=== PATIENT | female | born 1960 | race Caucasian/White ===

== ENCOUNTER 2022-07-16 12:18 | Inpatient (IN) | payer OTHER ==
[~2022-07-16] VITALS: Ht 167.6 cm; Wt 49.9 kg
[2022-08-02] MEDS ORDERED: FLUCONAZOLE100 MG PO (12:52)
[2022-08-02] MEDS ORDERED: TRAM1TAB98 PO (12:52)
[2022-08-02] MEDS ORDERED: PEPCID AC20 MG PO (12:53)
== END 2022-08-02 17:48 | disposition home or self-care (01) | DRG 329 ==
LOC: ER 12:18 → SURH 22:22 → SURG 22:22 → SURH 23:02
PROVIDERS: ADMIT Surgery; ATTEND Surgery
PROC: BW21YZZ Computerized Tomography (CT Scan) of Abdomen and Pelvis using Other Contrast (ICD-10-PCS; 2022-07-16)
PROC: 0T9030Z Drainage of Right Kidney with Drainage Device, Percutaneous Approach (ICD-10-PCS; 2022-07-18)
PROC: 0D1L4Z4 Bypass Transverse Colon to Cutaneous, Percutaneous Endoscopic Approach (ICD-10-PCS; principal; 2022-07-25 14:45)
PROC: 30233N1 Transfusion of Nonautologous Red Blood Cells into Peripheral Vein, Percutaneous Approach (ICD-10-PCS; 2022-08-01)
DX: C20 Malignant neoplasm of rectum (principal); A41.9 Sepsis, unspecified organism; C77.5 Secondary and unspecified malignant neoplasm of intrapelvic lymph nodes; K56.690 Other partial intestinal obstruction; N32.1 Vesicointestinal fistula; N39.0 Urinary tract infection, site not specified; N13.39 Other hydronephrosis; B96.5 Pseudomonas (aeruginosa) (mallei) (pseudomallei) as the cause of diseases classified elsewhere; D63.0 Anemia in neoplastic disease; Z20.822 Contact with and (suspected) exposure to COVID-19; Z93.3 Colostomy status

== ENCOUNTER 2022-08-15 18:58 | Inpatient (IN) | payer OTHER ==
[~2022-08-15] VITALS: Ht 198.1 cm; Wt 49.9 kg
[~2022-08-15 18:58] MED LIST: FLUCONAZOLE100 MG PO; PEPCID AC20 MG PO; TRAM1TAB98 PO
[2022-08-17] MEDS ORDERED: FAMOTIDINE20 MG (14:58)
[2022-08-20] MEDS ORDERED: PROTEINEX-18 LI30 ML PO (12:16)
[2022-08-20] MEDS ORDERED: PEPCID AC20 MG PO (12:16)
[2022-08-20] MEDS ORDERED: LEVOFLOXACIN750 MG PO (12:16)
[2022-08-20] MEDS ORDERED: MELATONIN10 M2 PO (12:16)
== END 2022-08-20 13:58 | disposition home or self-care (01) | DRG 690 ==
LOC: ER 18:58 → MEDJ 23:23
PROVIDERS: ADMIT Internal Medicine Geriatric Medicine; ATTEND Internal Medicine Geriatric Medicine
DX: N39.0 Urinary tract infection, site not specified (principal); C78.5 Secondary malignant neoplasm of large intestine and rectum; C20 Malignant neoplasm of rectum; N32.1 Vesicointestinal fistula; B96.89 Other specified bacterial agents as the cause of diseases classified elsewhere; Z74.01 Bed confinement status; Z93.3 Colostomy status; Z93.6 Other artificial openings of urinary tract status

== ENCOUNTER 2022-09-13 08:00 | Outpatient (CLI) | payer OTHER ==
[~2022-09-13 08:00] MED LIST changes: +FAMOTIDINE20 MG; +LEVOFLOXACIN750 MG PO; +MELATONIN10 M2 PO; +PROTEINEX-18 LI30 ML PO
== END 2022-09-13 08:05 | disposition home or self-care (01) ==
LOC: NUCLEAR 08:00
PROVIDERS: ATTEND Internal Medicine Hematology & Oncology
DX: C19 Malignant neoplasm of rectosigmoid junction (principal); C20 Malignant neoplasm of rectum

== ENCOUNTER 2023-02-18 11:47 | Inpatient (IN) | payer OTHER ==
[~2023-02-18] VITALS: Ht 167.6 cm; Wt 0.5 kg
[2023-02-18 13:57] LABS: HEMATOCRIT 38.1 % (36.0-45.00); HEMOGLOBIN 12.7 g/dL (12.0-15.00); MEAN CELL VOLUME 91.4 fL (80.00-100.00); MEAN CORPUSCULAR HEMOGLOBIN 30.5 pg (27.00-32.0); MEAN CORPUSCULAR HGB CONC 33.4 g/dl (32.0-36.0); PLATELET COUNT 348 K/uL (150-450); RED BLOOD COUNT 4.16 M/uL (4.00-6.00); RED CELL DISTRIBUTION WIDTH 18.8 % (11.5-14.5)
[2023-02-18 14:26] LABS: CALCIUM 8.9 mg/dL (8.5-10.1); CREATININE SERUM 0.86 mg/dL (0.55-1.02); GFR 66.86; POTASSIUM 4.17 mEq/L (3.5-5.1)
[2023-02-18 14:52] LABS: URINE APPEARANCE Turbid; URINE BILIRRUBIN Negative (NEGATIVE); URINE BLOOD Large; URINE COLOR Orange; URINE GLUCOSE Negative (NEGATIVE); URINE LEUKOCYTE Large; URINE NITRATE Negative
[2023-02-18 14:53] LABS: URINE RBC 1696.7 uL (0.0-20.8)
[2023-02-18 15:37] LABS: URINE BACTERIA > 9821.5 uL (0.0-1933); URINE EPITHELIAL CELLS > 201.7 uL (0.0-38.8); URINE PROTEIN 300 (NEGATIVE); URINE WBC > 5548.3 uL (0.0-23.2)
[2023-02-18 22:28] LABS: ABG PH 7.466 (7.35-7.45); ABG PO2 96.9 mmHg (80-100); BASE EXCESS 0.9 mmol/l; allen test SATISFACTORY; o2 21 %; puncture site RADIAL LEFT
[2023-02-19 00:02] LABS: INR 1.27; PROTHROMBIN TIME 13.1 SECONDS (9.0-11.5)
[2023-02-19 00:04] LABS: PARTIAL THROMBOPLASTIN TIME 39.1 SECONDS (22.0-34.0)
[2023-02-20 07:20] LABS: HEMATOCRIT 34.2 % (36.0-45.00); HEMOGLOBIN 11.2 g/dL (12.0-15.00); MEAN CELL VOLUME 90.2 fL (80.00-100.00); MEAN CORPUSCULAR HEMOGLOBIN 29.5 pg (27.00-32.0); MEAN CORPUSCULAR HGB CONC 32.7 g/dl (32.0-36.0); PLATELET COUNT 304 K/uL (150-450); RED BLOOD COUNT 3.79 M/uL (4.00-6.00); RED CELL DISTRIBUTION WIDTH 18.9 % (11.5-14.5)
[2023-02-20 08:11] LABS: ALBUMIN 1.6 gm/dL (3.4-5.0); BILIRUBIN TOTAL 0.33 mg/dL (0.3-1.2); CALCIUM 7.7 mg/dL (8.5-10.1); CREATININE SERUM 0.36 mg/dL (0.55-1.02); GFR 182.64; MAGNESIUM 1.8 mg/dL (1.8-2.4); POTASSIUM 3.77 mEq/L (3.5-5.1); TOTAL PROTEIN 4.6 gm/dL (6.4-8.2)
[2023-02-20 08:55] LABS: PHOSPHOROUS 1.6 mg/dL (2.5-4.9)
[2023-02-20 15:13] LABS: PH,URINE 6.5 (5.0-8.0); URINE APPEARANCE Cloudy; URINE BILIRRUBIN Negative (NEGATIVE); URINE BLOOD Small; URINE COLOR Yellow; URINE GLUCOSE Negative (NEGATIVE); URINE LEUKOCYTE Moderate; URINE NITRATE Positive; URINE PROTEIN 30 (NEGATIVE); URINE UROBILINOGEN 0.2 E.U./dl
[2023-02-20 15:17] LABS: URINE BACTERIA 231.8 uL (0.0-1933); URINE EPITHELIAL CELLS 68.7 uL (0.0-38.8); URINE RBC 32.3 uL (0.0-20.8); URINE WBC 481.4 uL (0.0-23.2)
[2023-02-20 15:29] LABS: URINE MUCUS SCANT
[2023-02-22 06:18] LABS: HEMATOCRIT 33.9 % (36.0-45.00); HEMOGLOBIN 11.3 g/dL (12.0-15.00); MEAN CELL VOLUME 89.1 fL (80.00-100.00); MEAN CORPUSCULAR HEMOGLOBIN 29.7 pg (27.00-32.0); MEAN CORPUSCULAR HGB CONC 33.3 g/dl (32.0-36.0); PLATELET COUNT 185 K/uL (150-450); RED BLOOD COUNT 3.81 M/uL (4.00-6.00); RED CELL DISTRIBUTION WIDTH 18.8 % (11.5-14.5)
[2023-02-22 07:11] LABS: ALBUMIN 1.4 gm/dL (3.4-5.0); BILIRUBIN TOTAL 0.28 mg/dL (0.3-1.2); CALCIUM 7.2 mg/dL (8.5-10.1); CREATININE SERUM 0.3 mg/dL (0.55-1.02); GFR 225.41; MAGNESIUM 1.5 mg/dL (1.8-2.4); POTASSIUM 3.08 mEq/L (3.5-5.1); TOTAL PROTEIN 4.4 gm/dL (6.4-8.2)
[2023-02-22 08:24] LABS: PHOSPHOROUS 1.5 mg/dL (2.5-4.9)
[2023-02-23 07:22] LABS: CALCIUM 7.6 mg/dL (8.5-10.1); PHOSPHOROUS 2.3 mg/dL (2.5-4.9); POTASSIUM 4.27 mEq/L (3.5-5.1)
[2023-02-23 09:04] LABS: CREATININE SERUM 0.28 mg/dL (0.55-1.02); GFR 244.1; MAGNESIUM 1.3 mg/dL (1.8-2.4)
[2023-02-24 08:13] LABS: ALBUMIN 1.3 gm/dL (3.4-5.0); BILIRUBIN TOTAL 0.3 mg/dL (0.3-1.2); CALCIUM 6.8 mg/dL (8.5-10.1); GFR 244.1; GLOBULINA 2.9 G/DL (2.4-3.5); MAGNESIUM 1.6 mg/dL (1.8-2.4); PHOSPHOROUS 2.8 mg/dL (2.5-4.9); POTASSIUM 3.82 mEq/L (3.5-5.1); TOTAL PROTEIN 4.2 gm/dL (6.4-8.2)
[2023-02-24 08:25] LABS: CREATININE SERUM 0.28 mg/dL (0.55-1.02)
[2023-02-24 08:42] LABS: HEMATOCRIT 29.9 % (36.0-45.00); HEMOGLOBIN 10.1 g/dL (12.0-15.00); MEAN CELL VOLUME 90.3 fL (80.00-100.00); MEAN CORPUSCULAR HEMOGLOBIN 30.5 pg (27.00-32.0); MEAN CORPUSCULAR HGB CONC 33.8 g/dl (32.0-36.0); PLATELET COUNT 220 K/uL (150-450); RED BLOOD COUNT 3.32 M/uL (4.00-6.00); RED CELL DISTRIBUTION WIDTH 18.9 % (11.5-14.5)
[2023-02-25 07:25] LABS: ALBUMIN 1.6 gm/dL (3.4-5.0); BILIRUBIN TOTAL 0.41 mg/dL (0.3-1.2); CREATININE SERUM 0.35 mg/dL (0.55-1.02); GFR 188.68; GLOBULINA 2.4 G/DL (2.4-3.5); POTASSIUM 3.64 mEq/L (3.5-5.1)
[2023-02-25 07:30] LABS: HEMATOCRIT 29.3 % (36.0-45.00); HEMOGLOBIN 9.9 g/dL (12.0-15.00); MEAN CORPUSCULAR HEMOGLOBIN 30.6 pg (27.00-32.0); MEAN CORPUSCULAR HGB CONC 33.7 g/dl (32.0-36.0); PLATELET COUNT 188 K/uL (150-450); RED BLOOD COUNT 3.22 M/uL (4.00-6.00); RED CELL DISTRIBUTION WIDTH 18.7 % (11.5-14.5)
[2023-02-25 07:45] LABS: C-REACTIVE PROTEIN 11.3 MG/DL (0.00-0.29)
[2023-02-26 08:36] LABS: HEMATOCRIT 33.8 % (36.0-45.00); MEAN CELL VOLUME 90.4 fL (80.00-100.00); MEAN CORPUSCULAR HEMOGLOBIN 29.5 pg (27.00-32.0); MEAN CORPUSCULAR HGB CONC 32.6 g/dl (32.0-36.0); PLATELET COUNT 268 K/uL (150-450); RED BLOOD COUNT 3.74 M/uL (4.00-6.00); RED CELL DISTRIBUTION WIDTH 19.6 % (11.5-14.5)
[2023-02-26 09:46] LABS: ERYTHROCYTE SEDIMENTATION RATE 73 mm/hr
[2023-02-26 12:04] LABS: PLATELET ESTIMATE NORMAL (NORMAL)
[2023-02-27 08:32] LABS: HEMATOCRIT 29.3 % (36.0-45.00); HEMOGLOBIN 9.8 g/dL (12.0-15.00); MEAN CELL VOLUME 90.6 fL (80.00-100.00); MEAN CORPUSCULAR HEMOGLOBIN 30.4 pg (27.00-32.0); MEAN CORPUSCULAR HGB CONC 33.5 g/dl (32.0-36.0); PLATELET COUNT 204 K/uL (150-450); RED BLOOD COUNT 3.23 M/uL (4.00-6.00)
[2023-02-27 08:41] LABS: ALBUMIN 1.5 gm/dL (3.4-5.0); ALKALINE PHOSPHATASE 423 U/L (50-136); ALT/SGPT 122 U/L (12-78); ANION GAP 9 (10.0-20.0); AST/SGOT 190 U/L (15-37); BILIRUBIN TOTAL 0.58 mg/dL (0.3-1.2); BLOOD UREA NITROGEN 2 mg/dL (7-18); CALCIUM 7.6 mg/dL (8.5-10.1); CARBON DIOXIDE 26 mEq/L (21-32); CHLORIDE 103 mmol/L (98-107); GLOBULINA 2.6 G/DL (2.4-3.5); GLUCOSE FASTING 78 mg/dL (65-100); OSMOLALITY SERUM 265 MOSM/KG (275-295); PHOSPHOROUS 2.4 mg/dL (2.5-4.9); POTASSIUM 3.49 mEq/L (3.5-5.1); SODIUM 135 mmol/L (136-145); TOTAL PROTEIN 4.1 gm/dL (6.4-8.2)
[2023-02-27 08:50] LABS: BUN CREA RATIO 13 (7.0-25.0); CREATININE SERUM < 0.15 mg/dL (0.55-1.02); GFR 501.65
[2023-03-01 06:25] LABS: HEMATOCRIT 29.2 % (36.0-45.00); HEMOGLOBIN 9.8 g/dL (12.0-15.00); MEAN CELL VOLUME 91.3 fL (80.00-100.00); MEAN CORPUSCULAR HEMOGLOBIN 30.7 pg (27.00-32.0); MEAN CORPUSCULAR HGB CONC 33.6 g/dl (32.0-36.0); PLATELET COUNT 167 K/uL (150-450); RED CELL DISTRIBUTION WIDTH 19.4 % (11.5-14.5)
[2023-03-01 06:42] LABS: ALBUMIN 1.3 gm/dL (3.4-5.0); ALKALINE PHOSPHATASE 539 U/L (50-136); ALT/SGPT 116 U/L (12-78); ANION GAP 12 (10.0-20.0); AST/SGOT 238 U/L (15-37); BLOOD UREA NITROGEN 4 mg/dL (7-18); CALCIUM 7.5 mg/dL (8.5-10.1); CARBON DIOXIDE 24 mEq/L (21-32); CHLORIDE 100 mmol/L (98-107); GLOBULINA 2.7 G/DL (2.4-3.5); GLUCOSE FASTING 95 mg/dL (65-100); OSMOLALITY SERUM 263 MOSM/KG (275-295); PHOSPHOROUS 2.6 mg/dL (2.5-4.9); POTASSIUM 3.32 mEq/L (3.5-5.1); SODIUM 133 mmol/L (136-145)
[2023-03-01 06:48] LABS: BUN CREA RATIO 26 (7.0-25.0); CREATININE SERUM < 0.15 mg/dL (0.55-1.02); GFR 501.65
[2023-03-02 07:10] LABS: ABG PH 7.457 (7.35-7.45)
[2023-03-02 07:11] LABS: ABG PO2 96.7 mmHg (80-100); ABG pCO2 33.8 mmHg (35-45); BASE EXCESS 0.1 mmol/l; BICARBONATE 23.3 mmol/l (23-25); SaO2 97.9 %; Tco2 24.4 mmol/l
[2023-03-02 07:12] LABS: o2 28 %
[2023-03-02 07:14] LABS: puncture site RADIAL LEFT
[2023-03-02 07:15] LABS: allen test SATISFACTORY
[2023-03-04 08:27] LABS: ALBUMIN 1.2 gm/dL (3.4-5.0); ALT/SGPT 150 U/L (12-78); ANION GAP 17 (10.0-20.0); AST/SGOT 362 U/L (15-37); BILIRUBIN TOTAL 0.65 mg/dL (0.3-1.2); BLOOD UREA NITROGEN 7 mg/dL (7-18); CALCIUM 8.3 mg/dL (8.5-10.1); CARBON DIOXIDE 22 mEq/L (21-32); CHLORIDE 97 mmol/L (98-107); GLOBULINA 2.9 G/DL (2.4-3.5); GLUCOSE FASTING 51 mg/dL (65-100); OSMOLALITY SERUM 260 MOSM/KG (275-295); PHOSPHOROUS 2.9 mg/dL (2.5-4.9); POTASSIUM 4.01 mEq/L (3.5-5.1); SODIUM 132 mmol/L (136-145); TOTAL PROTEIN 4.1 gm/dL (6.4-8.2)
[2023-03-04 08:28] LABS: ALKALINE PHOSPHATASE 761 U/L (50-136); BUN CREA RATIO 46 (7.0-25.0); CREATININE SERUM < 0.15 mg/dL (0.55-1.02); GFR 501.65
[2023-03-04 15:39] LABS: HEMOGLOBIN 9.8 g/dL (12.0-15.00); MEAN CELL VOLUME 92.7 fL (80.00-100.00); MEAN CORPUSCULAR HEMOGLOBIN 30.4 pg (27.00-32.0); MEAN CORPUSCULAR HGB CONC 32.8 g/dl (32.0-36.0); PLATELET COUNT 60 K/uL (150-450); RED BLOOD COUNT 3.23 M/uL (4.00-6.00); RED CELL DISTRIBUTION WIDTH 19.7 % (11.5-14.5)
[2023-03-06 06:49] LABS: ANION GAP 12 (10.0-20.0); BLOOD UREA NITROGEN 12 mg/dL (7-18); CALCIUM 8.9 mg/dL (8.5-10.1); CARBON DIOXIDE 24 mEq/L (21-32); CHLORIDE 97 mmol/L (98-107); GLUCOSE FASTING 77 mg/dL (65-100); OSMOLALITY SERUM 257 MOSM/KG (275-295); POTASSIUM 4.01 mEq/L (3.5-5.1); SODIUM 129 mmol/L (136-145)
[2023-03-06 06:51] LABS: BUN CREA RATIO 80 (7.0-25.0); CREATININE SERUM < 0.15 mg/dL (0.55-1.02); GFR 501.65
[2023-03-06 06:54] LABS: HEMATOCRIT 27.9 % (36.0-45.00); HEMOGLOBIN 9.3 g/dL (12.0-15.00); MEAN CELL VOLUME 91.6 fL (80.00-100.00); MEAN CORPUSCULAR HEMOGLOBIN 30.6 pg (27.00-32.0); MEAN CORPUSCULAR HGB CONC 33.4 g/dl (32.0-36.0); RED BLOOD COUNT 3.05 M/uL (4.00-6.00); RED CELL DISTRIBUTION WIDTH 19.3 % (11.5-14.5)
[2023-03-06 07:08] LABS: PLATELET COUNT 28 K/uL (150-450)
== END 2023-03-11 07:15 | disposition expired | DRG 853 ==
LOC: ER → SURH 21:37 → SEC-K 21:37 → SURH 02-19 14:30
PROVIDERS: Emergency Medicine; General Practice; Internal Medicine; Internal Medicine Hematology & Oncology; Internal Medicine Infectious Disease; Urology; ADMIT Internal Medicine; ATTEND Internal Medicine
PROC: BW21YZZ Computerized Tomography (CT Scan) of Abdomen and Pelvis using Other Contrast (ICD-10-PCS; 2023-02-18)
PROC: 4A12X4Z Monitoring of Cardiac Electrical Activity, External Approach (ICD-10-PCS; 2023-02-19)
PROC: 3E0F7SF Introduction of Other Gas into Respiratory Tract, Via Natural or Artificial Opening (ICD-10-PCS; 2023-02-19)
PROC: 0TPD8DZ Removal of Intraluminal Device from Urethra, Via Natural or Artificial Opening Endoscopic (ICD-10-PCS; 2023-02-22)
PROC: 0T768DZ Dilation of Right Ureter with Intraluminal Device, Via Natural or Artificial Opening Endoscopic (ICD-10-PCS; principal; 2023-02-22 19:00)
PROC: 02HV33Z Insertion of Infusion Device into Superior Vena Cava, Percutaneous Approach (ICD-10-PCS; 2023-03-03)
DX: A41.9 Sepsis, unspecified organism (principal); R65.21 Severe sepsis with septic shock; B37.49 Other urogenital candidiasis; T83.593A Infection and inflammatory reaction due to other urinary stents, initial encounter; C78.5 Secondary malignant neoplasm of large intestine and rectum; C79.82 Secondary malignant neoplasm of genital organs; C78.7 Secondary malignant neoplasm of liver and intrahepatic bile duct; C79.9 Secondary malignant neoplasm of unspecified site; C20 Malignant neoplasm of rectum; N32.1 Vesicointestinal fistula; E87.1 Hypo-osmolality and hyponatremia; N13.39 Other hydronephrosis; D84.821 Immunodeficiency due to drugs; I96 Gangrene, not elsewhere classified; D49.89 Neoplasm of unspecified behavior of other specified sites; T45.1X5A Adverse effect of antineoplastic and immunosuppressive drugs, initial encounter; N99.528 Other complication of incontinent external stoma of urinary tract; E86.0 Dehydration; D64.89 Other specified anemias; E83.42 Hypomagnesemia; D69.6 Thrombocytopenia, unspecified; E83.39 Other disorders of phosphorus metabolism; K71.9 Toxic liver disease, unspecified; G89.3 Neoplasm related pain (acute) (chronic); K62.89 Other specified diseases of anus and rectum; M54.2 Cervicalgia; R51.9 Headache, unspecified; R10.84 Generalized abdominal pain; Z92.21 Personal history of antineoplastic chemotherapy; Z92.3 Personal history of irradiation; Z66 Do not resuscitate